=== PATIENT | female | born 1995 | race African-American/Black ===

== ENCOUNTER 2024-12-04 12:17 | Emergency (ER) | payer MEDICAID ==
[~2024-12-04] VITALS: Ht 157.5 cm; Wt 82.0 kg
[2024-12-04 12:23] VITALS: O2SAT 97
[2024-12-04] MEDS: TETANUS, DIPHTHERIA, PERTUSSIS VAC/PF 0.5ML (>10YR OLD) IM ONE (13:06)
[2024-12-04] MEDS: LIDOCAINE HCL 1% 20ML VIAL INL ONE (13:07)
[2024-12-04] MEDS: IBUPROFEN 600MG TABLET PO ONE (13:07)
[2024-12-04] MEDS ORDERED: IBUP-2437 MT (14:40)
[2024-12-04] MEDS ORDERED: BO1 TP (14:44)
[2024-12-04 14:58] VITALS: BP 125/53; PULSE 84; RESP 20; TEMP 37; O2SAT 99
== END 2024-12-04 15:01 | disposition home or self-care (01) ==
LOC: ER 12:17
DX: S61.211A Laceration without foreign body of left index finger without damage to nail, initial encounter (principal); W45.8XXA Other foreign body or object entering through skin, initial encounter; Y93.89 Activity, other specified; Y92.000 Kitchen of unspecified non-institutional (private) residence as the place of occurrence of the external cause; Y99.8 Other external cause status
CPT/HCPCS: 90715; 12001; 90471; 99283; J2003; Z7610 ×2

== ENCOUNTER 2024-12-15 15:09 | Emergency (ER) | payer MEDICAID ==
[~2024-12-15] VITALS: Ht 167.6 cm; Wt 80.0 kg
[~2024-12-15 15:09] MED LIST: BO1 TP; IBUP-2437 MT
[2024-12-15 15:10] VITALS: O2SAT 98
[2024-12-15 15:15] VITALS: BP 117/60; PULSE 85; RESP 18; TEMP 37.2; O2SAT 100
== END 2024-12-15 15:45 | disposition home or self-care (01) ==
LOC: ER 15:09
DX: S61.211D Laceration without foreign body of left index finger without damage to nail, subsequent encounter (principal); Z48.02 Encounter for removal of sutures; X58.XXXD Exposure to other specified factors, subsequent encounter
CPT/HCPCS: 99282; Z7610; 99281